=== PATIENT | female | born 1960 ===

== ENCOUNTER 2024-04-14 15:30 | Inpatient (IN) | payer BC, SELFPAY ==
[2024-04-12 18:24] VITALS: BP 193/96
--- NOTE | 2024-04-12 20:23 | ED.GENMED ---
History of Present Illness
General
Chief Complaint: Abdominal Symptoms
Source: patient
Exam Limitations: none
Time Seen by Provider: 04/12/24 20:03
Travel History
Have you had any contact with someone who has COVID-19?: No
Do you have any symptoms of coronavirus? Fever > 100 degrees, chills, cough, shortness of breath, sore throat, loss of taste or smell, muscle aches, or headache?: No
History of Present Illness
History of Present Illness:
63-year-old female presents with sudden onset pain to the lower right abdomen starting yesterday. This happened when she was in [place]. She was seen at [facility]'s emergency room had CT scan of the abdomen as well as ultrasound of
the pelvis which demonstrated a large right-sided ovarian cyst and torsion cannot be ruled out. She was discharged with instructions to have her ovary taken out electively. The pain worsened today. She states she is unable to keep anything down
secondary to the pain. No measurable fever. She is fairly healthy otherwise. She has not had any diarrhea. No urinary symptoms.
Phy Exam
Physical Exam
Physical Exam:
General: Uncomfortable appearing female no acute respiratory distress
HEENT: Normocephalic atraumatic
Heart: Regular rate and rhythm no murmurs
Lungs: Clear no wheeze or Rales
Abdomen soft but tender to the right lower quadrant no guarding or rebound normal bowel sounds nondistended
Extremities: No cyanosis or edema
Skin: Warm no rash
Course
Orders/Labs/Results
Orders:
Orders
04/12/24 20:18
0.9% Sodium Chloride 1000 ml [Nss] 1,000 ml IV BOLUS
Ketorolac [Toradol] 15 mg IV NOW STA
Ondansetron Injectable [Zofran] 4 mg IV NOW STA
US Pelvis W Transvag Combined Urgent
Comment:
Reason For Exam: rlq pain
04/12/24 20:47
Complete Blood Count/With Diff Urgent
Comprehensive Metabolic Panel Urgent
04/12/24 21:34
HYDROmorphone [Dilaudid] 0.5 mg IV NOW STA
04/12/24 21:45
Ondansetron Injectable [Zofran] 4 mg .ROUTE .STK-MED ONE
Ondansetron Injectable [Zofran] 4 mg IV NOW STA
Abnormal Lab Results
04/12/24
20:47
WBC 14.4 H 10^3/uL
(4.8-10.8)
MCH 32.0 H pg
(27.0-31.0)
MPV 11.3 H fL
(7.4-10.4)
Abs Immat Gran (auto) 0.1 H 10^3/uL
(0-0.05)
Absolute Neuts (auto) 12.9 H 10^3/uL
(1.4-6.5)
Absolute Lymphs (auto) 1.0 L 10^3/uL
(1.2-3.4)
Immature Gran % 0.6 H %
(0-0.5)
Neutrophils % 89.5 H %
(42.2-75.2)
Lymphocytes % 6.8 L %
(20.5-51.1)
Carbon Dioxide 18 L mmol/L
(22-30)
Glucose 120 H mg/dl
(70-99)
04/12/24 20:47
04/12/24 20:47
Vital Signs
Initial and Last Documented VS:
Initial Vital Signs
Temp Pulse Resp BP Pulse Ox
99.1 F 63 16 193/96 100
04/12/24 18:24 04/12/24 18:24 04/12/24 18:24 04/12/24 18:24 04/12/24 18:24
Last Documented Vital Signs
Temp Pulse Resp BP Pulse Ox
98.6 F 76 16 118/79 96
04/12/24 20:48 04/12/24 23:30 04/12/24 18:24 04/12/24 23:30 04/12/24 23:30
MDM/Problems Addressed
Differential Diagnosis Includes:
Patient diagnosed with large right ovarian cyst and possible ovarian torsion yesterday no the emergency room. She notes increasing pain and inability to tolerate things by mouth. 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 Other items on
differential could include appendicitis.
Will check labs. Zofran fluids Toradol ordered. Ultrasound pelvis pending
*Critical Care Note
Total Time (30-74mins, 75-104mins- exclusive of procedures): Not Applicable
Update Note
Update Note:
Ultrasound shows large cyst on right ovary. Minimal peripheral flow on the ovary seen and torsion cannot be excluded. Discussed findings with gynecology. Will admit to house doctor for minimal pain control and evaluation by gynecology service for
potential surgical intervention.
ED Attending Note
-
Portions of this chart may have been created with voice recognition software.� Occasional wrong word or��sound alike� substitutions may have occurred due to the inherent limitations of voice recognition software.
Discharge Plan
Departure
Patient Disposition: Admit
Date of Disposition: 04/13/24
Time of Disposition: 00:12
Admit to: Med/Surg
Presentation/result/management discussed w/ accepting MD/DO: Defour
Discharge Problem:
Abdominal pain
Referrals:
Jenni Conti MD [Family Provider] -
Interventions
Interventions:
*Risk Screen - Suicide Last Done: 04/12/24 20:49
*General Assessment Last Done: 04/12/24 20:49
*ED COVID-19 Vaccine History Last Done: 04/12/24 18:24
LD-Egzoia-Vrgtsxytdd Assessment Last Done: 04/12/24 20:59
Discharge Date and Time
Print Language: CHINESE
[2024-04-12] MEDS: ZOFRAN 4 MG IV ×2 (20:44→21:46)
[2024-04-12] MEDS: NSS 1000 IV (20:44)
[2024-04-12] MEDS: TORADOL 15 MG IV (20:44)
[2024-04-12 20:48] VITALS: BP 162/92
[2024-04-12 20:50] VITALS: BMI 32.7
[2024-04-12 21:00] LABS: % Basophils 0.2 % (0-2); % Immature Granulocytes 0.6 % (0-0.5); % Lymphocytes 6.8 % (20.5-51.1); % Monocytes 2.9 % (1.7-9.3); % Neutrophils 89.5 % (42.2-75.2); Absolute Immature Granulocytes 0.1 10^3/uL (0-0.05); Absolute Monocytes 0.4 10^3/uL (0.1-0.6); Absolute Neutrophils 12.9 10^3/uL (1.4-6.5); Hematocrit 42.4 % (37.0-47.0); Hemoglobin 14.8 g/dL (12.0-16.0); Mean Corp Hgb Conc. 34.9 g/dL (33.0-37.0); Mean Corpuscular Volume 91.6 fL (81.0-99.0); Mean Platelet Volume 11.3 fL (7.4-10.4); Nucleated Red Blood Cells % 0 %; Platelet Count 271 10^3/uL (130-400); Red Blood Cell Count 4.63 10^6/uL (4.20-5.40); Red Cell Dist. Width 13.1 % (11.5-14.5); White Blood Cell Count 14.4 10^3/uL (4.8-10.8)
[2024-04-12 21:14] LABS: ALT (SGPT) 17 U/L (0-35); AST (SGOT) 29 U/L (14-36); Alkaline Phosphatase 75 U/L (38-126); Blood Urea Nitrogen 12 mg/dl (7-17); Calcium 10.2 mg/dl (8.4-10.2); Carbon Dioxide 18 mmol/L (22-30); Chloride 102 mmol/L (98-107); Estimated Creatinine Clearance 89 ml/min; Glucose 120 mg/dl (70-99); Potassium 4.7 mmol/L (3.5-5.1); Sodium 136 mmol/L (135-145); Total Bilirubin 0.9 mg/dl (0.2-1.3); Total Protein 7.5 g/dl (6.3-8.2); eGFR > 60.00
[2024-04-12] MEDS: DILAUDID 0.5 MG IV (21:40)
[2024-04-12 23:30] VITALS: BP 118/79
--- NOTE | 2024-04-13 01:39 | HPS.HSE ---
Family Physician
-
Family Physician: Jenni Conti MD
Chief Complaint
-
Abdominal pain
History of Present Illness
a 63 years old female present in ER with a complain of abdominal pain. Symptoms started yesterday around 3 pm sudden onset of pain at the RT lower side of abdomen described as sharp associated with nausea and vomiting. Patient went to ER at
[facility], abdomen/ pelvis CT & ultrasound were done which is confirming a large RT sided ovarian cyst and torsion can not be ruled out. Patient was discharged home with prescription for pain meds and antiemetics. Pain get worse today
associated with chills, nausea, vomiting. Patient denied SOB, chest pain, urinary symptoms and vaginal bleeding or discharges. Patient has no medical history.
Medical History
Past Medical History
Past Medical History: Reports None
Past Surgical History: Reports Urological (Bladder sling ) and Other (Exploratory Laparotomy )
Social History
Tobacco: Non-smoker
Alcohol: Daily
Drug: None
Personal:
Living: With Family
Employment: Other
Family History
Family History: Not pertinent
Allergies / Home Medications
Allergies reflects when Allergies were last updated in [employer].
Home Medications with original date entered in [employer]
Allergy/Medication List:
Patient Allergies
Allergy/AdvReac Type Severity Reaction Status Date / Time
amoxicillin Allergy Rash Verified 04/12/24 20:46
Iodinated Contrast Media Allergy Hives Verified 04/12/24 20:46
Home Medications Table - record
�Medication �Instructions �Recorded �Confirmed
latanoprost 0.005 % eye drops 1 drp ophthalmic (eye) HS 04/13/24 04/13/24
levocetirizine 5 mg tablet (Xyzal) 5 mg HS 04/13/24 04/13/24
propranolol 20 mg tablet 20 mg HS 04/13/24 04/13/24
Review of Systems
-
A 12 point ROS was completed and negative except as noted: Yes
Constitutional: Reports No Symptoms
Respiratory: Reports No Symptoms
Cardiac: Reports No Symptoms
Abdomen/GI: Reports Abdominal Pain (RLQ ), Nausea and Vomiting
: Reports No Symptoms
Musculoskeletal: Reports No Symptoms
Skin: Reports No Symptoms
Hematologic/Lymphatic: Reports No Symptoms
Psych: Reports No Symptoms
Physical Exam
Vital Signs
Vital Signs
Temp Pulse Resp BP Pulse Ox
98.6 F 76 16 118/79 96
04/12/24 20:48 04/12/24 23:30 04/12/24 18:24 04/12/24 23:30 04/12/24 23:30
Physical Exam
General: No Apparent Distress
Respiratory: Clear
Cardiac: Regular Rhythm
GI: Soft, Non Distended, Normal Bowel Sounds and Tender (RLQ)
Musculoskeletal: No Edema
Neuro: Awake and AO x 3
Psych: Calm
Laboratory Results
-
04/12/24 20:47
04/12/24 20:47
Laboratory Results
Lactic Acid Cancelled 04/13/24 01:24
Total Bilirubin 0.9 mg/dl (0.2-1.3) 04/12/24 20:47
AST 29 U/L (14-36) 04/12/24 20:47
ALT 17 U/L (0-35) 04/12/24 20:47
Alkaline Phosphatase 75 U/L (38-126) 04/12/24 20:47
Data Reviewed
-
Ultrasound: Discussed with Patient
Lab Data: Discussed with Patient
Impression/Plan
-
US Pelvis W Transvag Combined shows
The right ovary is filled with a large 6.5 x 5 x 6.3 cm simple cyst. Minimal peripheral ovarian tissue is visualized, with minimal peripheral flow.
The left ovary could not be visualized.
There is a small amount of simple appearing free fluid in the pelvis.
IMPRESSION:
Abdominal pain/ RT ovarian cyst
PLAN:
Admit /observation/ Med-surg / Dr. Paredes (Gynecology services)
NPO
IVF
Antiemetics
analgesics as needed.
- WBC 14.4 on admission, lactic acid ordered and result is unremarkable, will repeat lab in am.
DVT prophylaxis Lovenox sq
Code status : Ful code
[2024-04-13 01:51] VITALS: BP 129/87
[2024-04-13 02:18] LABS: Lactic Acid 0.8 mmol/L (0.7-2.0)
[2024-04-13 03:25] VITALS: BP 127/73
[2024-04-13 03:41] VITALS: BMI 26.4
[2024-04-13] MEDS: DILAUDID 0.5 MG IV ×3 (03:53→17:48)
[2024-04-13] MEDS: NSS 1000 IV ×2 (03:54→17:48)
--- NOTE | 2024-04-13 04:17 | HP.FOC2 ---
Focused History & Physical
Chief Complaint
HPI:
Chief Complaint: Abdominal Pain
HPI / Indication for Planned Procedure: 63yo (SVDx1, SAB x2) presents to the ER with c/o RLQ pain since yesterday. She says she was in [place] and as she was walking she started to experience worsening RLQ pain, with associated n/v. She
went to [facility] and had a CT scan that r/o appendicitis but showed a large right ovarian cyst. f/u US performed showed it to be a simple cyst, torsion could not be ruled out. Given her age, the attending felt that immediate surgical
intervention was not needed, but rather pain control and f/u within a couple weeks to discuss outpatient removal. She was d/c home but says she never really felt better and over the night and day the pain, n/v continued to get worse. She called the
[facility] Team Lead office and she was advised to return to the ER as at this point she had not been able to eat or drink anything in 24 hours and the pain medication she was d/c with were not helping. Of note, she states that between 2733-1713 she was
being followed for a simple right ovarian cyst (presumably the same cyst), it was stable at 5cm. Tumor markers were negative. She even saw [facility] Team Lead-Onc who offered removal but she declined at the time.
While in the E.R. today she got Toradol which did not help, then got dilaudid which helped a lot. Has been able to void. No BM in a couple days. NO VB. Nausea is slightly better now
Relevant Past Medical History: Other (Migraine, Glaucoma)
Relevant Social History: Negative
Relevant Family History: Negative
Relevant Past Surgical History: Positive for (Bladder sling, Exp Lap for Infertility)
Review of Systems
Review of Pertinent Systems: All Systems Negative Except for the Following Positives (per HPI)
Medication
See Medication form for detailed medications: Yes
Medication List (including Herbals & OTC):
latanoprost 0.005 % eye drops 1 drp ophthalmic (eye) HS 04/13/24
levocetirizine 5 mg tablet (Xyzal) 5 mg HS 04/13/24
propranolol 20 mg tablet 20 mg HS 04/13/24
Medications Reviewed: Yes
Allergies and Reactions
Patient has Allergies: Yes
Noted Allergies and Reactions:
Allergy/AdvReac Type Severity Reaction Status Date / Time
amoxicillin Allergy Rash Verified 04/12/24 20:46
Iodinated Contrast Media Allergy Hives Verified 04/12/24 20:46
Pertinent Physical Exam
All Other Systems: Negative
Abdomen: Other (Mild ttp in the RLQ, no r/g, abdomen soft)
Diagnosis / Assessment
63yo with RLQ pain and large Right ovarian cyst
Plan / Procedure
I reviewed U/S results with the patient. Given her reported h/o a right ovarian cyst 10 years ago, and the simple appearance of the cyst now, it is very likely that this is the same cyst thus my suspicion for malignancy is very low. Her acute onset
of pain can be associated with torsion vs cyst rupture. There is only minimal free fluid in pelvis so my suspicion is lower for rupture. Alternatively torsion is a higher possibility. Currently on exam patient without an acute abdomen and at her
age, there isnt concern for ovarian preservation, thus I do not think emergent surgical intervention overnight is needed, however with her persistent pain and failure of outpatient pain mgmt I think it would be appropriate to add her on to the OR
schedule for later today. I discussed with patient potentially doing either an RSO or BSO. I will discuss further with the physician who will be assuming her care later this AM.
Patient to remain NPO with IVF
Dilaudid IV prn pain.
Imaging Data
-
Pelvic US Uterus 7x3x4.1cm, Mildly heterogeneous. EMS 2mm. Right ovary filled with a large 6.5x 5x 6.3cm simple cyst. Minimal peripheral ovarian tissue is visualized with minimal peripheral flow. NO definite torsoin identified however cannot exclude
given the large size of the ovarian cyst. Left ovary not seen. Small amount of simple appearing free fluid in pelvis
[2024-04-13 05:20] LABS: % Basophils 0.2 % (0-2); % Eosinophils 0.1 % (0-6); % Immature Granulocytes 0.6 % (0-0.5); % Lymphocytes 15.2 % (20.5-51.1); % Monocytes 11.3 % (1.7-9.3); % Neutrophils 72.6 % (42.2-75.2); Absolute Immature Granulocytes 0.1 10^3/uL (0-0.05); Absolute Lymphocytes 2.1 10^3/uL (1.2-3.4); Absolute Monocytes 1.6 10^3/uL (0.1-0.6); Hematocrit 36.7 % (37.0-47.0); Hemoglobin 12.6 g/dL (12.0-16.0); Mean Corp Hgb Conc. 34.3 g/dL (33.0-37.0); Mean Corpuscular Hgb 31.7 pg (27.0-31.0); Mean Corpuscular Volume 92.2 fL (81.0-99.0); Mean Platelet Volume 11.6 fL (7.4-10.4); Nucleated Red Blood Cells % 0 %; Platelet Count 219 10^3/uL (130-400); Red Blood Cell Count 3.98 10^6/uL (4.20-5.40); White Blood Cell Count 13.8 10^3/uL (4.8-10.8)
[2024-04-13 05:51] LABS: ALT (SGPT) 13 U/L (0-35); AST (SGOT) 24 U/L (14-36); Albumin 3.7 g/dl (3.5-5.0); Alkaline Phosphatase 58 U/L (38-126); Blood Urea Nitrogen 11 mg/dl (7-17); Carbon Dioxide 21 mmol/L (22-30); Chloride 105 mmol/L (98-107); Estimated Creatinine Clearance 72 ml/min; Glucose 90 mg/dl (70-99); Potassium 4.1 mmol/L (3.5-5.1); Sodium 135 mmol/L (135-145); Total Bilirubin 0.7 mg/dl (0.2-1.3); eGFR > 60.00
[2024-04-13 07:00] VITALS: BP 127/66
[2024-04-13] MEDS: TYLENOL 650 MG PO ×2 (09:08→21:19)
[2024-04-13] MEDS: ZOFRAN 4 MG IV ×2 (09:08→17:49)
[2024-04-13 09:18] VITALS: BMI 26.3
--- NOTE | 2024-04-13 10:43 | CM ---
Patient seen bedside, initial assessment completed. Patient resides with her in a two story home, three steps to enter. Patient denies DME, VN, or SNF history. Patient confirms PCP Jenni Morrow, pharmacy [facility] in [place], confirms
prescription coverage. Patient denies food insecurities at home. CM reviewed OBS status, signed, placed in chart. CM will continue to follow for discharge planning needs.
Plan; home no needs vs VN.
--- NOTE | 2024-04-13 11:57 | W.PN.OBG.DWH ---
Today's Communication / Plan
-
Check CA-125, CEA, CA19-9
NPO after midnight
Pt consented for laparoscopic BSO, possible exploratory laparotomy in AM
Medicate as needed for nausea and pain
Assessment/Plan
-
A/P Right ovarian cyst, cannot rule out torsion- Patient aware of recommendation to remove the cyst/ovary. Current measurements larger than patient history, and no imaging has been done in over 5 years, so cannot be absolutely sure this is same
cyst. Plan to check CA-125, CEA, CA19-9, prior to surgery as patient stable and if labs significantly abnormal, patient may need [facility] Onc to perform surgery. Only CA-125 expected back today. Patient scheduled for OR tomorrow AM, as awaiting tumor
markers.
Pt has consented to removal of both tubes and ovaries. Is aware of possible need for exploratory laparotomy and if pathology of cyst demonstrates LMP or CA, will need additional surgery.
Patinet will be allowed to do liquids, keep NPO after midnight. is aware Dr Bhakta will be doing surgery.
Subjective Data
-
Patient seen at 0815 and again now
Patient with 'mild' pain, relieved with meds. More nauseated than anything, no vomiting. Doesn't feel like eating. Reviewed patient history, and imaging reports from [facility].
Objective Data
-
Laboratory Results
04/13/24 04:48
04/13/24 04:48
Vital Signs
Temp Pulse Resp BP Pulse Ox
98.4 F 68 16 127/66 98
04/13/24 07:00 04/13/24 07:00 04/13/24 07:00 04/13/24 07:00 04/13/24 07:00
Abdomen-soft, nondistended, mildly tender, no rebound or guarding, hypoactive bowel sounds
Extremities-no calf pain
[2024-04-13 12:09] LABS: CEA 0.66 ng/ml
[2024-04-13 12:15] LABS: CA 125 < 5.5 U/mL (0-35)
[2024-04-13] MEDS: REGLAN 10 MG IV (12:43)
[2024-04-13 15:00] VITALS: BP 144/78
[2024-04-13] MEDS: LOVENOX 40 MG SC (17:50)
[2024-04-13] MEDS: INDERAL 20 MG PO (21:17)
[2024-04-13] MEDS: XALATAN OPHTHALMIC SOLUTION 1 DROP BOTH EYES (21:18)
[2024-04-13 23:37] VITALS: BP 131/72
[2024-04-14] VITALS (9 sets, daily range): BP systolic 100–148; BP diastolic 56–90
[2024-04-14] MEDS: DILAUDID 0.5 MG IV (01:29)
[2024-04-14] MEDS: ZOFRAN 4 MG IV (01:29)
[2024-04-14] MEDS: NSS 1000 IV (04:46)
--- NOTE | 2024-04-14 07:47 | W.SUR.PREOP ---
Pre-Operative Surgical Note
-
I have examined this patient prior to the performance of the scheduled procedure.
The patient's condition is unchanged from the time of the current History and
Physical and the patient is able to undergo the scheduled procedure.
Patient seen by me this am.
REviewed H&P\\[facility] hospitalist H&P-
PSH: cystoscopy and dx laparoscopy hysteroscopy D&C polypectomy for infertility
Ordered heparin SC heparin
SCDs
confirmed op consent/planned procedure
--- NOTE | 2024-04-14 10:10 | W.IMMPOSTOP ---
Surgical Immed Post Op Note
-
Primary Surgeon: Tabitha Bhakta, DO
Assisting Surgeon: none
Pre-op Diagnosis: Right adnexal hemorrhagic cyst with right adnexal torsion, hemoperitoneum
Post-op Diagnosis: same
Procedure Performed: Diagnostic laparoscopy, bilateral salpingo-oopherectomy, pelvic washings
Anesthesia Type: general ET, Dr. Alvarez
Specimen / Cultures: 1. bilateral tubes and ovaries 2. pelvic washings
Estimated Blood Loss: 10ml
Ancef 2 g IV preop.
Complications: none
Operative Findings: Normal appearing uterus and left tube and ovary. Large right ovarian hemorrhagic cyst with edema and torsion of right adnexa, hemorrhage noted in surrounding broad ligament.
Counts correct times.
[2024-04-14] MEDS: TORADOL 15 MG IV (11:06)
--- NOTE | 2024-04-14 11:29 | PTCARENOTE ---
The patient returned from [facility] b/l bso with pelvic washing.She is alert and rates her pain at a 3-4 out of 10.All 3 lap sites and port site are clean and dry with no drainage.Vital signs are stable.The patient is in her bed with the call giraldo
in reach.Her is at the bedside.
--- NOTE | 2024-04-14 16:34 | CM ---
met with patient who is sp bl salpingo oophorectomy,she is voidng,ambulating,eating.patient is stable for dc home with no needs.
[2024-04-14 23:21] LABS: CA 19-9 10 U/mL (<=35)
== END 2024-04-14 15:39 | disposition home or self-care (01) | DRG 742 ==
LOC: 2 SOUTH 15:30
PROVIDERS: Nurse Practitioner Family; Obstetrics & Gynecology; Physician Assistant; ADMITTING PHYSICIAN Obstetrics & Gynecology; EMERGENCY PHYSICIAN Student in an Organized Health Care Education/Training Program; FAMILY PHYSICIAN Family Medicine
PROC: 3E1M48Z Irrigation of Peritoneal Cavity using Irrigating Substance, Percutaneous Endoscopic Approach (ICD-10-PCS; 2024-04-14)
PROC: 0UT24ZZ Resection of Bilateral Ovaries, Percutaneous Endoscopic Approach (ICD-10-PCS; 2024-04-14)
PROC: 0UT74ZZ Resection of Bilateral Fallopian Tubes, Percutaneous Endoscopic Approach (ICD-10-PCS; 2024-04-14)
DX: N83.291 Other ovarian cyst, right side (principal); K66.1 Hemoperitoneum
CPT/HCPCS: 88305; 76830; 76856; 80053; 82378; 83605; 85025; 86301; 86304; 88112; 96361; 96374; 96375; 96376; 99285; G0378

== ENCOUNTER → 2024-05-22 10:39 | Outpatient (REF) | payer BC, SELFPAY | LOC: HWWDC 10:39 | PROVIDERS: ATTENDING PHYSICIAN Obstetrics & Gynecology; FAMILY PHYSICIAN Family Medicine | DX: Z12.31 Encounter for screening mammogram for malignant neoplasm of breast (principal) | CPT/HCPCS: 77063; 77067 ==

== ENCOUNTER → 2025-10-25 10:08 | Outpatient (REF) | payer BC, SELFPAY | LOC: HWRAD 10:08 | PROVIDERS: ATTENDING PHYSICIAN Family Medicine | DX: Z12.31 Encounter for screening mammogram for malignant neoplasm of breast (principal); Z78.0 Asymptomatic menopausal state | CPT/HCPCS: 77063; 77067; 77080 ==